=== PATIENT | male | born 1955 | race Caucasian/White ===

== ENCOUNTER 2024-01-26 13:46 | Inpatient (IN) | payer MEDICARE, OTHER ==
[~2024-01-26] VITALS: Ht 175.3 cm; Wt 81.6 kg
[2024-01-26] MEDS: FENTANYL CITRATE 100 MCG/2 ML AMPUL IV ONE ×2 (14:00→22:59)
[2024-01-26] MEDS: ONDANSETRON 4 MG/2 ML VIAL IV ONE (14:00)
[2024-01-26] MEDS ORDERED: ONDANSETRON 4 MG/2 ML VIAL ONE (14:13)
[2024-01-26] MEDS ORDERED: FENTANYL CITRATE 100 MCG/2 ML AMPUL ONE ×3 (14:13→22:54)
[2024-01-26] MEDS ORDERED: ONDANSETRON ODT 4 MG TAB.RAPDIS ONE (15:10)
[2024-01-26] MEDS: FENTANYL CITRATE 100 MCG/2 ML AMPUL IM ONE (15:17)
[2024-01-26] MEDS: ONDANSETRON ODT 4 MG TAB.RAPDIS SL ONE (15:18)
[2024-01-26] MEDS ORDERED: SULFAMETH/TRIMETH 800/160 MG TABLET ONE (15:21)
[2024-01-26] MEDS: SULFAMETH/TRIMETH 800/160 MG TABLET PO ONE (15:26)
[2024-01-26] MEDS: IV NORMAL SALINE 1000 ML BAG IV ONE (16:43)
[2024-01-26 16:57] LABS: BASOPHILS % (AUTO) 0.1 % (0.0-2.0); HEMOGLOBIN 8.9 g/dL (12.5-16.3); LYMPHOCYTES # (AUTO) 0.4 K/uL (0.8-4.8); LYMPHOCYTES % (AUTO) 5.8 % (20.5-51.5); MEAN CORPUSCULAR HEMOGLOBIN 30.6 uug (23.8-33.4); MEAN CORPUSCULAR HGB CONC 34 g/dL (32.5-36.3); MEAN CORPUSCULAR VOLUME 88.9 fL (73.0-96.2); MONOCYTES # (AUTO) 0.1 K/uL (0.1-1.30); MONOCYTES % (AUTO) 1.8 % (0.0-11.0); NEUTROPHILS # (AUTO) 5.9 K/uL (1.8-8.9); NEUTROPHILS % (AUTO) 92.3 % (38.5-71.5); PLATELET COUNT (AUTO) 299 K/uL (152-348); RED BLOOD CELL COUNT(AUTO) 2.92 MIL/uL (4.06-5.63); RED CELL DISTRIBUTION WIDTH 15.7 % (12.1-16.2); WHITE BLOOD COUNT (AUTO) 6.4 K/uL (3.6-10.2)
[2024-01-26 17:00] LABS: DIFFERENTIAL COMMENT 1
[2024-01-26] MEDS ORDERED: CEFAZOLIN 1 G VIAL ONE (17:12)
[2024-01-26] MEDS: CEFAZOLIN 1 G in IV DEXTROSE 5% 50 ML IV ONE (17:15)
[2024-01-26 17:16] LABS: BILIRUBIN,DIRECT 0.5 mg/dL (0.0-0.2); BILIRUBIN,TOTAL 1.4 mg/dL (0.2-1.0); POTASSIUM 3.1 mmol/L (3.5-5.1); TOTAL PROTEIN, SERUM 5.8 g/dL (6.4-8.2)
[2024-01-26 17:23] LABS: LACTIC ACID 3.9 mmol/L (0.4-2.0)
[2024-01-26] MEDS: IV LACTATED RINGERS SOLUTION 1,000 ML BAG IV ONE (18:46)
[2024-01-26] MEDS: ENOXAPARIN SODIUM 40 MG/0.4 ML DISP.SYRIN SQ SCH (19:15)
[2024-01-26] MEDS ORDERED: MAGNESIUM HYDROXIDE 30 ML LIQUID UDC PO PRN (19:15)
[2024-01-26] MEDS ORDERED: REMEDY ESSENTIAL ZINC PASTE 113 GM TP PRN (19:15)
[2024-01-26] MEDS ORDERED: ONDANSETRON 4 MG/2 ML VIAL IV PRN (19:15)
[2024-01-26] MEDS ORDERED: DEXTROSE 50% 50 ML DISP.SYRIN IV PRN (19:15)
[2024-01-26] MEDS ORDERED: FENTANYL CITRATE 100 MCG/2 ML AMPUL IV ONE (19:30)
[2024-01-26] MEDS: CLINDAMYCIN PHOSPHATE IV 900 MG in IV DEXTROSE 5% 100 ML IV SCH (22:00)
[2024-01-27] MEDS: BLOOD SUGAR DIAGNOSTIC 1 EACH STRIP VI SCH
[2024-01-27] MEDS ORDERED: CLINDAMYCIN 900MG/D5W 100ML IVPB **ER PYXIS ONLY IJ ONE ×2 (00:40→05:06)
[2024-01-27] MEDS ORDERED: ENOXAPARIN SODIUM 40 MG/0.4 ML DISP.SYRIN SQ ONE (01:14)
[2024-01-27] MEDS: INSULIN REGULAR, HUMAN 1000 UNIT/10 ML VIAL SQ PRN (01:31)
[2024-01-27 02:40] VITALS: BP 144/73; TEMP 98.3; O2SAT 98
[2024-01-27] MEDS: IV NS 1000 ML 1,000 ML IV PRN (05:56)
[2024-01-27 06:28] VITALS: BP 126/70; TEMP 98.5; O2SAT 95
[2024-01-27 07:01] LABS: HEMATOCRIT 21.2 % (36.7-47.1); HEMOGLOBIN 7.8 g/dL (12.5-16.3); LYMPHOCYTES # (AUTO) 0.8 K/uL (0.8-4.8); MEAN CORPUSCULAR HEMOGLOBIN 31.9 uug (23.8-33.4); MEAN CORPUSCULAR HGB CONC 37 g/dL (32.5-36.3); MONOCYTES # (AUTO) 0.2 K/uL (0.1-1.30); NEUTROPHILS # (AUTO) 7.7 K/uL (1.8-8.9); PLATELET COUNT (AUTO) 222 K/uL (152-348); RED CELL DISTRIBUTION WIDTH 15.6 % (12.1-16.2); WHITE BLOOD COUNT (AUTO) 8.6 K/uL (3.6-10.2)
[2024-01-27 07:20] LABS: CALCIUM 8.1 mg/dL (8.5-10.1); CREATININE 0.8 mg/dL (0.6-1.3); DIFFERENTIAL COMMENT 1; MAGNESIUM 1.5 mg/dL (1.8-2.4); PHOSPHOROUS 3.2 mg/dL (2.5-4.9); RED BLOOD CELL COUNT(AUTO) 2.44 MIL/uL (4.06-5.63)
[2024-01-27] MEDS ORDERED: CLINDAMYCIN PHOSPHATE IV 900 MG in IV DEXTROSE 5% 50 ML IV SCH (08:00)
[2024-01-27] MEDS: CLINDAMYCIN PHOSPHATE IV 900 MG in IV DEXTROSE 5% 50 ML IV SCH (08:03)
[2024-01-27 08:11] LABS: POTASSIUM 2.5 mmol/L (3.5-5.1)
[2024-01-27] MEDS: MAGNESIUM SULFATE/D5W 100 ML IV SCH (09:46)
[2024-01-27] MEDS: POTASSIUM CHLORIDE 20 MEQ TAB.PRT.SR PO SCH (09:49)
[2024-01-27 12:00] VITALS: BP 109/57; TEMP 98.7; O2SAT 95
[2024-01-27 16:00] VITALS: BP 105/63; TEMP 98.3; O2SAT 96
[2024-01-27 20:27] VITALS: BP 103/53; TEMP 98.3; O2SAT 96
[2024-01-27] MEDS: HYDROCODONE/APAP 5-325MG TABLET PO PRN (20:28)
[2024-01-27] MEDS: INSULIN REGULAR, HUMAN 300 UNITS/3 ML VIAL SQ PRN (20:36)
[2024-01-28 04:08] VITALS: BP 128/70; TEMP 98.1; O2SAT 95
[2024-01-28 07:01] LABS: BASOPHILS % (AUTO) 0.1 % (0.0-2.0); EOSINOPHILS % (AUTO) 0.4 % (0.0-7.0); HEMATOCRIT 21.4 % (36.7-47.1); LYMPHOCYTES # (AUTO) 0.4 K/uL (0.8-4.8); LYMPHOCYTES % (AUTO) 10.6 % (20.5-51.5); MEAN CORPUSCULAR HEMOGLOBIN 30.7 uug (23.8-33.4); MEAN CORPUSCULAR HGB CONC 35 g/dL (32.5-36.3); MEAN CORPUSCULAR VOLUME 88.5 fL (73.0-96.2); MONOCYTES # (AUTO) 0.2 K/uL (0.1-1.30); MONOCYTES % (AUTO) 4.7 % (0.0-11.0); NEUTROPHILS # (AUTO) 3.5 K/uL (1.8-8.9); NEUTROPHILS % (AUTO) 84.2 % (38.5-71.5); PLATELET COUNT (AUTO) 181 K/uL (152-348); WHITE BLOOD COUNT (AUTO) 4.2 K/uL (3.6-10.2)
[2024-01-28 07:04] LABS: DIFFERENTIAL COMMENT 1; HEMOGLOBIN 7.4 g/dL (12.5-16.3); RED BLOOD CELL COUNT(AUTO) 2.41 MIL/uL (4.06-5.63)
[2024-01-28 07:09] LABS: CALCIUM 8.3 mg/dL (8.5-10.1); CARBON DIOXIDE 30 mmol/L (21-32); CHLORIDE 99 mmol/L (98-107); CREATININE 0.6 mg/dL (0.6-1.3); GLUCOSE 126 mg/dL (74-106); MAGNESIUM 1.9 mg/dL (1.8-2.4); PHOSPHOROUS 2.9 mg/dL (2.5-4.9); SODIUM SERUM 134 mmol/L (136-145); UREA NITROGEN, BLOOD 11 mg/dL (7-18)
[2024-01-28] MEDS: POTASSIUM CHLORIDE 10 MEQ TAB.PRT.SR PO SCH (08:22)
[2024-01-28 11:14] VITALS: BP 106/57; TEMP 98.4; O2SAT 96
[2024-01-28 15:04] VITALS: BP 118/72; TEMP 98.2; O2SAT 94
[2024-01-28] MEDS: HYDROCODONE/APAP 5-325MG TABLET PO PRN (18:04)
[2024-01-28 20:00] VITALS: BP 99/56; TEMP 98.5; O2SAT 96
[2024-01-28] MEDS: MAGNESIUM OXIDE 400 MG TABLET PO SCH (21:47)
[2024-01-29] VITALS (10 sets, daily range): BP systolic 104–123; BP diastolic 55–75; TEMP 97–99.4; O2SAT 94–96
[2024-01-29] MEDS: HYDROCODONE/APAP 5-325MG TABLET PO PRN (00:15)
[2024-01-29 06:58] LABS: CALCIUM 8.1 mg/dL (8.5-10.1); CARBON DIOXIDE 30 mmol/L (21-32); CHLORIDE 99 mmol/L (98-107); CREATININE 0.6 mg/dL (0.6-1.3); GLUCOSE 113 mg/dL (74-106); POTASSIUM 3.6 mmol/L (3.5-5.1); SODIUM SERUM 134 mmol/L (136-145); UREA NITROGEN, BLOOD 9 mg/dL (7-18)
[2024-01-29 07:07] LABS: BASOPHILS % (AUTO) 0.1 % (0.0-2.0); DIFFERENTIAL COMMENT 0; EOSINOPHILS % (AUTO) 0.9 % (0.0-7.0); LYMPHOCYTES # (AUTO) 0.4 K/uL (0.8-4.8); LYMPHOCYTES % (AUTO) 11.9 % (20.5-51.5); MEAN CORPUSCULAR HEMOGLOBIN 30.6 uug (23.8-33.4); MEAN CORPUSCULAR HGB CONC 35 g/dL (32.5-36.3); MEAN CORPUSCULAR VOLUME 88.3 fL (73.0-96.2); MONOCYTES # (AUTO) 0.1 K/uL (0.1-1.30); MONOCYTES % (AUTO) 2.7 % (0.0-11.0); NEUTROPHILS # (AUTO) 2.8 K/uL (1.8-8.9); NEUTROPHILS % (AUTO) 84.4 % (38.5-71.5); PLATELET COUNT (AUTO) 182 K/uL (152-348); RED CELL DISTRIBUTION WIDTH 16.2 % (12.1-16.2); WHITE BLOOD COUNT (AUTO) 3.3 K/uL (3.6-10.2)
[2024-01-29 07:11] LABS: HEMATOCRIT 19.7 % (36.7-47.1); HEMOGLOBIN 6.9 g/dL (12.5-16.3); RED BLOOD CELL COUNT(AUTO) 2.24 MIL/uL (4.06-5.63)
[2024-01-29 07:53] LABS: NEUTROPHILS % (MANUAL) 0 % (42-75)
[2024-01-29 07:54] LABS: LYMPHOCYTES % (MANUAL) 0 % (20-40)
[2024-01-29 09:45] LABS: *OCCULT BLOOD STOOL POSITIVE (NEGATIVE)
[2024-01-29] MEDS: ACETAMINOPHEN 325 MG TABLET PO PRN (17:58)
[2024-01-30 06:00] VITALS: BP 132/69; TEMP 99; O2SAT 96
[2024-01-30 06:46] LABS: BASOPHILS % (AUTO) 0.1 % (0.0-2.0); EOSINOPHILS % (AUTO) 1.2 % (0.0-7.0); HEMATOCRIT 22.2 % (36.7-47.1); HEMOGLOBIN 7.8 g/dL (12.5-16.3); LYMPHOCYTES # (AUTO) 0.4 K/uL (0.8-4.8); LYMPHOCYTES % (AUTO) 14.5 % (20.5-51.5); MEAN CORPUSCULAR HEMOGLOBIN 31.1 uug (23.8-33.4); MEAN CORPUSCULAR HGB CONC 35 g/dL (32.5-36.3); MEAN CORPUSCULAR VOLUME 88.5 fL (73.0-96.2); MONOCYTES # (AUTO) 0.1 K/uL (0.1-1.30); MONOCYTES % (AUTO) 4.4 % (0.0-11.0); NEUTROPHILS # (AUTO) 2.4 K/uL (1.8-8.9); NEUTROPHILS % (AUTO) 79.8 % (38.5-71.5); PLATELET COUNT (AUTO) 167 K/uL (152-348); RED BLOOD CELL COUNT(AUTO) 2.51 MIL/uL (4.06-5.63); RED CELL DISTRIBUTION WIDTH 15.6 % (12.1-16.2)
[2024-01-30 06:49] LABS: CALCIUM 8.1 mg/dL (8.5-10.1); CARBON DIOXIDE 30 mmol/L (21-32); CHLORIDE 102 mmol/L (98-107); CREATININE 0.6 mg/dL (0.6-1.3); GLUCOSE 95 mg/dL (74-106); POTASSIUM 3.5 mmol/L (3.5-5.1); SODIUM SERUM 137 mmol/L (136-145); UREA NITROGEN, BLOOD 8 mg/dL (7-18)
[2024-01-30 06:55] LABS: DIFFERENTIAL COMMENT 1
[2024-01-30 12:00] VITALS: BP 116/78; TEMP 97; O2SAT 96
[2024-01-30 16:00] VITALS: BP 118/72; TEMP 97.6; O2SAT 97
[2024-01-30 19:30] VITALS: BP 128/75; TEMP 98.5; O2SAT 98
[2024-01-31 06:00] VITALS: BP 123/73; TEMP 97.8; O2SAT 98
[2024-01-31 07:12] LABS: BASOPHILS % (AUTO) 0.2 % (0.0-2.0); EOSINOPHILS % (AUTO) 0.7 % (0.0-7.0); HEMATOCRIT 21.5 % (36.7-47.1); HEMOGLOBIN 7.7 g/dL (12.5-16.3); LYMPHOCYTES # (AUTO) 0.8 K/uL (0.8-4.8); LYMPHOCYTES % (AUTO) 16.3 % (20.5-51.5); MEAN CORPUSCULAR HEMOGLOBIN 31.5 uug (23.8-33.4); MEAN CORPUSCULAR HGB CONC 36 g/dL (32.5-36.3); MEAN CORPUSCULAR VOLUME 88.4 fL (73.0-96.2); MONOCYTES # (AUTO) 0.2 K/uL (0.1-1.30); MONOCYTES % (AUTO) 3.3 % (0.0-11.0); NEUTROPHILS % (AUTO) 79.5 % (38.5-71.5); PLATELET COUNT (AUTO) 176 K/uL (152-348); RED CELL DISTRIBUTION WIDTH 15.4 % (12.1-16.2); WHITE BLOOD COUNT (AUTO) 5.1 K/uL (3.6-10.2)
[2024-01-31 07:27] LABS: DIFFERENTIAL COMMENT 1; RED BLOOD CELL COUNT(AUTO) 2.43 MIL/uL (4.06-5.63)
[2024-01-31 07:35] LABS: CARBON DIOXIDE 30 mmol/L (21-32); CHLORIDE 101 mmol/L (98-107); CREATININE 0.6 mg/dL (0.6-1.3); GLUCOSE 97 mg/dL (74-106); POTASSIUM 2.9 mmol/L (3.5-5.1); SODIUM SERUM 136 mmol/L (136-145); UREA NITROGEN, BLOOD 7 mg/dL (7-18)
[2024-01-31] MEDS ORDERED: POTASSIUM CHLORIDE 20 MEQ TAB.PRT.SR PO ONE (08:30)
[2024-01-31] MEDS: POTASSIUM CHLORIDE 10 MEQ TAB.PRT.SR PO SCH (09:12)
[2024-01-31 11:11] VITALS: BP 123/75; TEMP 98.4; O2SAT 95
[2024-01-31] MEDS: HYDROCODONE/APAP 10-325 MG TABLET PO PRN (14:55)
[2024-01-31 15:19] VITALS: BP 140/82; TEMP 98.2; O2SAT 96
[2024-01-31] MEDS ORDERED: ASCO500C18 PO (16:07)
[2024-01-31] MEDS ORDERED: DOCU-141 PO (16:07)
[2024-01-31] MEDS ORDERED: PANT40TA2 PO (16:07)
[2024-01-31] MEDS ORDERED: MAGN400T30 PO (16:07)
[2024-01-31] MEDS ORDERED: HYDR-3980 PO (16:07)
[2024-01-31] MEDS ORDERED: MAGN400O6 PO (16:07)
[2024-01-31] MEDS ORDERED: POTA10CA43 PO (16:07)
[2024-01-31] MEDS ORDERED: ACID1TAB4 PO (16:07)
[2024-01-31] MEDS ORDERED: RXVAN IV (16:07)
[2024-01-31] MEDS ORDERED: MULT-1045 PO (16:07)
[2024-01-31] MEDS ORDERED: PROT30LI PO (16:07)
[2024-01-31] MEDS ORDERED: MERO1PIG IV (16:07)
[2024-01-31] MEDS ORDERED: ACET325T53 PO (16:07)
== END 2024-01-31 18:36 | DRG 871 ==
LOC: ER 13:46 → MEDSURG3 19:30
PROVIDERS: ADMIT Internal Medicine; ATTEND Internal Medicine
PROC: 02HV33Z Insertion of Infusion Device into Superior Vena Cava, Percutaneous Approach (ICD-10-PCS; principal; 2024-01-28)
PROC: 30243N1 Transfusion of Nonautologous Red Blood Cells into Central Vein, Percutaneous Approach (ICD-10-PCS; 2024-01-29)
DX: A41.9 Sepsis, unspecified organism (principal); E43 Unspecified severe protein-calorie malnutrition; L03.116 Cellulitis of left lower limb; K50.90 Crohn's disease, unspecified, without complications; D68.59 Other primary thrombophilia; E87.1 Hypo-osmolality and hyponatremia; E87.20 Acidosis, unspecified; I89.0 Lymphedema, not elsewhere classified; I87.2 Venous insufficiency (chronic) (peripheral); G89.29 Other chronic pain; Z74.09 Other reduced mobility; E83.42 Hypomagnesemia; D50.9 Iron deficiency anemia, unspecified; E87.6 Hypokalemia; Z91.81 History of falling; S90.522A Blister (nonthermal), left ankle, initial encounter; W07.XXXA Fall from chair, initial encounter; Y92.009 Unspecified place in unspecified non-institutional (private) residence as the place of occurrence of the external cause; R19.5 Other fecal abnormalities; Z68.26 Body mass index [BMI] 26.0-26.9, adult
CPT/HCPCS: 36415; 70030-TC; 71045; 73600; 83605; 83735; 84100; 85025; 85651; 86140; 86850; 86900; 86901; 86920; 87040; A6209; A6213; G0378; J0690; J1650; J1815; J2405; J3010; J3475; J3490; J7040; P9016; Q0162